=== PATIENT | male | born 1980 | race Caucasian/White ===

== ENCOUNTER 2018-03-28 19:28 | Emergency (ER) | payer MEDICAID ==
[~2018-03-28] VITALS: Ht 180.3 cm; Wt 79.0 kg
[~2018-03-28 19:28] MED LIST: CLIN-26 PO
[2018-03-28] MEDS ORDERED: normal saline 1000ML IV soln IVB ONE (19:55)
[2018-03-28 20:05] LABS: BASOPHILS # (AUTO) 0.1 X10'3 (0-0.2); BASOPHILS % (AUTO) 0.7 % (0-1); EOSINOPHILS # (AUTO) 0.5 X10'3 (0-0.9); EOSINOPHILS % (AUTO) 4.8 % (0-6); HEMATOCRIT 46.2 % (42.0-52.0); HEMOGLOBIN 15.8 g/dl (14.0-17.9); INR 1.1 INR; LYMPHOCYTES # (AUTO) 1.6 X10'3 (1.1-4.8); LYMPHOCYTES % (AUTO) 14.8 % (21-51); MEAN CORPUSCULAR HEMOGLOBIN 29.4 PG (27.0-31.0); MEAN CORPUSCULAR HGB CONC 34.2 % (33.0-36.5); MEAN CORPUSCULAR VOLUME 86.1 FL (78-98); MEAN PLATELET VOLUME 7.9 FL (7.4-10.4); MONOCYTES # (AUTO) 0.7 X10'3 (0-0.9); MONOCYTES % (AUTO) 6.8 % (2-12); NEUTROPHILS # (AUTO) 7.9 X10'3 (1.8-7.7); NEUTROPHILS % (AUTO) 72.9 % (42-75); PARTIAL THROMBOPLASTIN TIME 28 SECONDS (22-32); PLATELET COUNT 281 X10'3 (140-440); PROTHROMBIN TIME 11.5 SECONDS (9.0-12.0); RED BLOOD COUNT 5.36 X10'6 (4.70-6.10); RED CELL DISTRIBUTION WIDTH 11.8 % (11.5-14.5); WHITE BLOOD COUNT 10.8 X10'3 (4.5-11.0)
[2018-03-28 20:10] LABS: ALANINE AMINOTRANSFERASE 47 U/L (12-78); ALBUMIN 4.1 G/DL (3.4-5.0); ALBUMIN/GLOBULIN RATIO 1.1 (1.1-1.5); ALKALINE PHOSPHATASE 97 IU/L (46-116); ANION GAP 12 (8-16); ASPARTATE AMINO TRANSFERASE 28 U/L (10-37); BILIRUBIN,TOTAL 1.2 MG/DL (0.1-1.0); BLOOD UREA NITROGEN 20 MG/DL (7-18); BUN/CREATININE RATIO 17.4 (5.4-32.0); CALCIUM 9.4 MG/DL (8.5-10.1); CHLORIDE 102 MMOL/L (99-107); CREATININE 1.15 MG/DL (0.60-1.10); GLUCOSE 104 MG/DL (70-104); POTASSIUM 3.7 MMOL/L (3.5-5.1); SODIUM 139 MMOL/L (135-145); TOTAL CARBON DIOXIDE 25.1 MMOL/L (24-32); TOTAL PROTEIN 7.9 G/DL (6.4-8.2); eGFR 71 ML/MIN
[2018-03-28 20:41] LABS: CREATINE KINASE 161 U/L (39-308)
[2018-03-28 20:59] VITALS: BP 107/74
== END 2018-03-28 21:00 | disposition home or self-care (01) ==
LOC: ER 19:29
DX: R55 Syncope and collapse (principal); F17.200 Nicotine dependence, unspecified, uncomplicated; F15.90 Other stimulant use, unspecified, uncomplicated; F11.90 Opioid use, unspecified, uncomplicated; L60.0 Ingrowing nail; R00.0 Tachycardia, unspecified; Z59.0 Homelessness; Z79.2 Long term (current) use of antibiotics
CPT/HCPCS: 36415; 70450; 71045; 80053; 82550; 84484; 85025; 85610; 85730; 93005; 96360; 99285; J7030

== ENCOUNTER 2018-04-17 08:14 | Emergency (ER) | payer MEDICAID | END 2018-04-17 08:39 | disposition left against medical advice (07) | LOC: ER 08:14 | DX: T14.8XXA Other injury of unspecified body region, initial encounter (principal); Z53.21 Procedure and treatment not carried out due to patient leaving prior to being seen by health care provider; W57.XXXA Bitten or stung by nonvenomous insect and other nonvenomous arthropods, initial encounter; Y93.89 Activity, other specified; Y92.89 Other specified places as the place of occurrence of the external cause; Y99.8 Other external cause status ==

== ENCOUNTER 2020-04-26 16:09 | Emergency (ER) | payer MEDICAID ==
[~2020-04-26] VITALS: Ht 180.3 cm; Wt 84.1 kg
[2020-04-26] MEDS ORDERED: HYDROcodone/acetaminophen 5mg/325mg tablet PO ONE (17:10)
--- NOTE | 2020-04-26 17:18 | NUR ---
Timothy MOONEY removed c-collar.
[2020-04-26 18:32] VITALS: BP 121/80
--- NOTE | 2020-04-26 18:33 | NUR ---
assumed care of pt . pt retuned from ct . laying bed updated deborah of care . pt asking for food . stateing he is [place] . awaiting ct results . pt states " norco doesnt work for my family , it gets us high as fuck but it doesnt help " . pt attempting to void and states " its from the norco , it cramps me up so i cant pee " pt has had one norco . pt is not very friendly in dialogue " u aer a pediatric orthodontist one , " condensending . opened the curtain , as patient made me fearful at bedside .
--- NOTE | 2020-04-26 18:58 | NUR ---
ASSERSSMENT CORRECTION . PT LEFT KNEE IS INJURIED
--- NOTE | 2020-04-26 19:56 | NUR ---
WENT TO BEDSIDE TO ASSESS PATIENT AND UPDATE HIM ON HIS CT RESULTS . ASKED PT IF HE HAS SEEN THE DR AFTER THE CT, PT REPLIED "NO" , THIS RECODER THEN REPLIED , " YOU KNEE HAS A FRACTURE" . PT RESPONDED WITH " I KNOW IT FUCKING BROKE , WHAT THE FUCK IS WRONG WITH YOU AND THIS PLACE , I KNOW MY FUCKING KNEE IS BROKE " . YELLING AND HOSTILE . THIS RECORDER LEFT THE ROOM PATIENT WAS HOSTILE
[2020-04-26] MEDS ORDERED: oxyCODONE SR 10mg (sust. release) tab PO ONE (20:10)
[2020-04-26] MEDS ORDERED: OXYC-150 PO (20:13)
== END 2020-04-26 20:45 | disposition home or self-care (01) ==
LOC: ER 16:10
DX: S82.142A Displaced bicondylar fracture of left tibia, initial encounter for closed fracture (principal); M25.562 Pain in left knee; F17.200 Nicotine dependence, unspecified, uncomplicated; F15.90 Other stimulant use, unspecified, uncomplicated; F11.90 Opioid use, unspecified, uncomplicated; Z72.89 Other problems related to lifestyle; Z59.0 Homelessness; Z79.2 Long term (current) use of antibiotics; V89.2XXA Person injured in unspecified motor-vehicle accident, traffic, initial encounter; Y93.89 Activity, other specified; Y92.89 Other specified places as the place of occurrence of the external cause; Y99.8 Other external cause status
CPT/HCPCS: 29505; 73560; 73700; 99284

== ENCOUNTER 2020-07-22 01:07 | Emergency (ER) | payer MEDICAID ==
[~2020-07-22] VITALS: Ht 180.3 cm; Wt 78.8 kg
[~2020-07-22 01:07] MED LIST changes: +OXYC-150 PO
--- NOTE | 2020-07-22 03:05 | NUR ---
lying on left side additional blankets given for warmth
[2020-07-22 03:06] LABS: ALANINE AMINOTRANSFERASE 55 U/L (12-78); ALBUMIN 3.9 G/DL (3.4-5.0); ALKALINE PHOSPHATASE 120 IU/L (46-116); ANION GAP 6 (8-16); ASPARTATE AMINO TRANSFERASE 29 U/L (10-37); BILIRUBIN,TOTAL 0.4 MG/DL (0.1-1.0); BLOOD UREA NITROGEN 16 MG/DL (7-18); BUN/CREATININE RATIO 18.2 (5.4-32.0); CALCIUM 9.5 MG/DL (8.5-10.1); CHLORIDE 108 MMOL/L (99-107); CREATININE 0.88 MG/DL (0.60-1.10); GLUCOSE 98 MG/DL (70-104); POTASSIUM 4.2 MMOL/L (3.5-5.1); SODIUM 143 MMOL/L (135-145); eGFR > 90 ML/MIN
[2020-07-22 03:28] LABS: ETHANOL < 0.010 GM/DL (0.0-0.010)
--- NOTE | 2020-07-22 04:23 | NUR ---
lying supine, no signs of distress.
--- NOTE | 2020-07-22 05:30 | NUR ---
SLEEPING SUPINE UNEVENTFUL NIGHT
--- NOTE | 2020-07-22 06:13 | NUR ---
handoff with knowledge that UA and med rec neds completion. Care assumed by Renny TUCKER
--- NOTE | 2020-07-22 07:12 | NUR ---
PT SLEEPING IN HIS RGT LATERAL POSITION ,RR WNL.WILL CONT TO MONITOR ,WILL GET URINE SPECIMEN WHEN PT WAKES UP.
--- NOTE | 2020-07-22 07:57 | NUR ---
PT WOKE UP FROM SLEEP INSTRUCTED THAT WE NEED URINE SPECIMEN TO GET IT TESTED ,PT STATED TAHT HE IS READY TO URINATE .URINAL AND WIPE GIVEN TO GET CC SPECIMEN.PROVIDED PRIVACY ,PLANT OPERATOR CONTROL ROOM OPERATOR OUTSIDE TO KEEP AN EYE ON PT.
[2020-07-22 08:22] LABS: URINE AMPHETAMINE SCREEN POSITIVE (Neg); URINE BARBITUATE SCREEN NEGATIVE (Neg); URINE BENZODIAZEPINES SCREEN NEGATIVE (Neg); URINE CANNABINOID SCREEN POSITIVE (Neg); URINE COCAINE SCREEN NEGATIVE (Neg); URINE METHADONE SCREEN NEGATIVE (Neg); URINE OPIATE SCREEN NEGATIVE (Neg); URINE PHENCYCLIDINE SCREEN NEGATIVE (Neg)
--- NOTE | 2020-07-22 08:53 | NUR ---
PT APPEAR SLEEPING IN BED IN RGT LAT POSITION COMFORTABLY ,NO DISTRESS NOTED ,RR WNL.WILL CONT TO MONITOR.
--- NOTE | 2020-07-22 09:21 | NUR ---
ASKING MINAL VANCE IF HAS SENT THE PACKET TO [facility] AND WHEN CHECKED HEMATALOGY WAS PENDING ,CALLED LAB IF THEY HAVE RECEVIED THE SPECIMEN PER CHAIRLIFT OPERATOR THEY DON'T HAVE IT DOWN THERE ,THE REST OF LAB WAS [facility] AT 0220 ON JUL 22 2020,NOTIFIED CRYSTAL FROM LAB TO COLLECT LAVENDER TOP PER HER SHE IS GOING TO SEARCH IN LAB IF SHE CAN FIND IF NOT THEN SHE WILL COLLECT THE SPECIMEN AND ONCES WE GET THE RESULTS WILL FAX TO [facility] OFFICE.
[2020-07-22 10:18] LABS: BASOPHILS # (AUTO) 0.1 X10'3 (0-0.2); BASOPHILS % (AUTO) 1.1 % (0-1); EOSINOPHILS # (AUTO) 0.3 X10'3 (0-0.9); EOSINOPHILS % (AUTO) 5.5 % (0-6); HEMATOCRIT 41.8 % (42.0-52.0); HEMOGLOBIN 14.1 g/dl (14.0-17.9); LYMPHOCYTES # (AUTO) 1.4 X10'3 (1.1-4.8); LYMPHOCYTES % (AUTO) 22.8 % (21-51); MEAN CORPUSCULAR HEMOGLOBIN 28.3 PG (27.0-31.0); MEAN CORPUSCULAR HGB CONC 33.8 g/dL (33.0-36.5); MEAN CORPUSCULAR VOLUME 83.7 FL (78-98); MEAN PLATELET VOLUME 7.5 FL (7.4-10.4); MONOCYTES # (AUTO) 0.9 X10'3 (0-0.9); NEUTROPHILS # (AUTO) 3.5 X10'3 (1.8-7.7); NEUTROPHILS % (AUTO) 55.6 % (42-75); PLATELET COUNT 232 X10'3 (140-440); RED BLOOD COUNT 4.99 X10'6 (4.70-6.10); RED CELL DISTRIBUTION WIDTH 13.4 % (11.5-14.5); WHITE BLOOD COUNT 6.3 X10'3 (4.5-11.0)
[2020-07-22 10:39] LABS: TOTAL CELLS COUNTED 100
[2020-07-22 10:40] LABS: PLATELET ESTIMATE NORMAL
[2020-07-22 14:25] VITALS: BP 123/92
== END 2020-07-22 14:33 | disposition home or self-care (01) ==
LOC: ER 01:08
DX: R45.851 Suicidal ideations (principal); F15.90 Other stimulant use, unspecified, uncomplicated; F43.10 Post-traumatic stress disorder, unspecified; F31.9 Bipolar disorder, unspecified; F12.90 Cannabis use, unspecified, uncomplicated; Z87.891 Personal history of nicotine dependence; Z59.0 Homelessness; Z88.1 Allergy status to other antibiotic agents; Z79.899 Other long term (current) drug therapy; Z72.89 Other problems related to lifestyle
CPT/HCPCS: 80053; 80305; 80320; 84443; 85007; 85025; 99283; 99285